=== PATIENT | male | born 1940 | race Caucasian/White ===

== ENCOUNTER 2017-02-04 16:35 | Emergency (ER) | payer MEDICARE, OTHER ==
[~2017-02-04] VITALS: Ht 167.6 cm; Wt 94.3 kg
[~2017-02-04 16:35] MED LIST: ACET650S26 GT; APIX5TAB PO; ATOR40TA PO; DEXT1CAP3 GT; DILT90CA GT; DOCU50LI GT; FURO20TA4 PO; HYDR-3652 GT; INSU100V3 SQ; INSU100V7 SQ; LOSA25TA3 PO; METF500T4 GT; METO5SOL2 GT; OMEP40CA37 GT; ONDA4TAB5 PO; ZOLP10TA6 PO
--- NOTE | 2017-02-04 16:38 | NUR ---
Bib due to intermitent abdominal pain x 2 weeks, worst today. Patient is aao4, appears in no acute distress, respiration even and unlabored. Patient denies chest pain. Skin is warm to touch and non diaphoretic. Afebrile. vss
--- NOTE | 2017-02-04 16:58 | NUR ---
MD Marte at bedside
[2017-02-04] MEDS ORDERED: ONDANSETRON HCL/PF 4 MG/2 ML VIAL ONE (17:06)
--- NOTE | 2017-02-04 17:14 | NUR ---
pt is also complaining of right leg swelling. Md Marte aware
--- NOTE | 2017-02-04 17:15 | NUR ---
Medicated patient as ordered
--- NOTE | 2017-02-04 17:15 | NUR ---
Iv accessed to lac 20. blood sample sent
[2017-02-04 17:16] LABS: BASOPHILS % (AUTO) 0.6 % (0.0-2.0); EOSINOPHILS # (AUTO) 0.4 /CMM (0.0-0.7); EOSINOPHILS % (AUTO) 6.2 % (0.0-6.0); HEMATOCRIT 36 % (39-51); LYMPHOCYTES # (AUTO) 1.3 /CMM (0.8-4.8); LYMPHOCYTES % (AUTO) 19.8 % (20.0-44.0); MEAN CORPUSCULAR HEMOGLOBIN 31 PG (26.0-33.0); MEAN CORPUSCULAR HGB CONC 33 g/dl (31.0-36.0); MEAN CORPUSCULAR VOLUME 94 fL (80-96); MONOCYTES # (AUTO) 0.5 /CMM (0.1-1.30); MONOCYTES % (AUTO) 7.8 % (2.0-12.0); NEUTROPHILS # (AUTO) 4.2 /CMM (1.8-8.9); NEUTROPHILS % (AUTO) 65.6 % (43.0-81.0); PLATELET COUNT (AUTO) 280 /CMM (150-450); RDW COEFFICIENT OF VARIATION 15.9 (11.5-15.0); RED BLOOD CELL COUNT(AUTO) 3.85 MIL/uL (4.5-6.0); WHITE BLOOD COUNT (AUTO) 6.4 K/uL (4.3-11.0)
[2017-02-04 17:26] LABS: CALCIUM, SERUM 9.1 mg/dL (8.5-10.1); CARBON DIOXIDE 32 mmol/L (21-32); CHLORIDE 103 mmol/L (98-107); CREATININE 2.5 mg/dL (0.6-1.3); GLUCOSE 125 mg/dL (74-106); POTASSIUM 4.2 mmol/L (3.5-5.1); SODIUM SERUM 140 mmol/L (136-145); UREA NITROGEN, BLOOD 37 mg/dL (7-18)
[2017-02-04 17:30] LABS: INR 1.09 (0.87-1.13); PROTHROMBIN TIME 11.3 SECS (9.5-12.7)
[2017-02-04] MEDS ORDERED: ONDANSETRON HCL/PF 4 MG/2 ML VIAL IVP ONE (17:30)
--- NOTE | 2017-02-04 17:30 | NUR ---
patient taken to ct
[2017-02-04 17:34] LABS: TROPONIN I < 0.017 ng/mL (0.00-0.056)
[2017-02-04 17:39] LABS: ALANINE AMINOTRANSFERASE 16 U/L (12-78); ALBUMIN 3.8 g/dL (3.4-5.0); ALKALINE PHOSPHATASE 74 U/L (46-116); ASPARTATE AMINOTRANSFERASE 14 U/L (15-37); B-TYPE NATRIURETIC PEPTIDE 3423 PG/ML (0-125); BILIRUBIN,DIRECT 0.2 mg/dL (0.0-0.2); BILIRUBIN,TOTAL 0.4 mg/dL (0.2-1.0); TOTAL PROTEIN, SERUM 8.2 g/dL (6.4-8.2)
--- NOTE | 2017-02-04 17:58 | NUR ---
CALLED [facility] FOR TELE BED
--- NOTE | 2017-02-04 18:00 | NUR ---
PAGED COMMUTATOR UNDERCUTTER FOR [facility] DR FOOTE
--- NOTE | 2017-02-04 18:00 | NUR ---
patient is back from ct
--- NOTE | 2017-02-04 18:02 | NUR ---
ER DOCTOR ON THE PHONE WITH DR FOOTE
[2017-02-04] MEDS ORDERED: SITA50TA PO (18:10)
[2017-02-04] MEDS ORDERED: CHOL200026 PO (18:10)
[2017-02-04] MEDS ORDERED: LORA10TA7 PO (18:10)
[2017-02-04] MEDS ORDERED: SERT50TA PO (18:10)
--- NOTE | 2017-02-04 18:30 | NUR ---
Report given to Nurse Najera for tele admission
--- NOTE | 2017-02-04 18:46 | NUR ---
pt transported to [address] [place] [id number]
--- NOTE | 2017-02-04 19:08 | NUR ---
INFORMED NURSING SUP. PT WILL BE TRANSPORTED TO [facility]
--- NOTE | 2017-02-04 19:11 | NUR ---
REPORT GIVEN TO NURSE MARTIN FOR [facility]ILIA
--- NOTE | 2017-02-04 19:12 | NUR ---
REPORT REC'D FROM KATARZYNA SO FOR ANALILIA.
--- NOTE | 2017-02-04 19:14 | NUR ---
CALLED [facility], SPOKE WITH TIMOTHY, ASKED FOR TELE BED AND 'S NUMBER (UROLOGIST), , WILL CALL HIM
--- NOTE | 2017-02-04 19:17 | NUR ---
PAGED DR. MENDY PA (UROLOGIST)
--- NOTE | 2017-02-04 19:20 | NUR ---
PT IS NPO, PER DR. DAVIDSON
--- NOTE | 2017-02-04 19:22 | NUR ---
PAGED CERAMIC TILE INSTALLATION HELPER FOR [facility] AT [facility] DR BRE PEREZ
--- NOTE | 2017-02-04 19:32 | NUR ---
CALLED [facility] FOR TRANSPORT TO [facility], ETA 90 MIN
--- NOTE | 2017-02-04 19:42 | NUR ---
[facility]
--- NOTE | 2017-02-04 19:42 | NUR ---
PT GOING TO [place] TELE BED ROOM 220
--- NOTE | 2017-02-04 19:47 | NUR ---
CALLING REPORT TO TELE NURSE AT [facility].
--- NOTE | 2017-02-04 19:54 | NUR ---
REPORT GIV[facility] TO [facility]. PT IS GOING TO ROOM #220
--- NOTE | 2017-02-04 20:22 | NUR ---
ON PHONE WITH
--- NOTE | 2017-02-04 20:28 | NUR ---
CALLED [facility] TO [facility]GRADE AM[facility]ULANCE TO [facility]
--- NOTE | 2017-02-04 20:31 | NUR ---
[facility] ETA FOR UPGRADING TO ALS IS 2 HOURS
[2017-02-04 22:30] VITALS: BP 141/82
--- NOTE | 2017-02-04 22:45 | NUR ---
[facility] ARRIVED. REPORT GIVEN TO EMT. COPY OF ALL LABS AND RADIOLOGY GIVEN
== END 2017-02-04 18:47 | disposition other institution (70) ==
LOC: ER 16:37 → UNDOADMIN 18:14 → TELE 18:14
DX: I50.9 Heart failure, unspecified (principal); I48.91 Unspecified atrial fibrillation; R53.1 Weakness; E11.9 Type 2 diabetes mellitus without complications; I13.0 Hypertensive heart and chronic kidney disease with heart failure and stage 1 through stage 4 chronic kidney disease, or unspecified chronic kidney disease; N18.9 Chronic kidney disease, unspecified; Z86.73 Personal history of transient ischemic attack (TIA), and cerebral infarction without residual deficits; Z88.6 Allergy status to analgesic agent; Z79.4 Long term (current) use of insulin
CPT/HCPCS: 36415; 71010; 74176; 80048; 80076; 83880; 84484; 85025; 85730; 93005; 96374; 99285; A4606; J2405; Z7610

== ENCOUNTER 2017-05-22 09:05 | Outpatient (CLI) | payer MEDICARE, OTHER ==
[~2017-05-22 09:05] MED LIST changes: -ACET650S26 GT; +CHOL200026 PO; -DEXT1CAP3 GT; -DILT90CA GT; -DOCU50LI GT; -HYDR-3652 GT; -INSU100V3 SQ; -INSU100V7 SQ; +LORA10TA7 PO; -METF500T4 GT; -METO5SOL2 GT; -OMEP40CA37 GT; -ONDA4TAB5 PO; +SERT50TA PO; +SITA50TA PO; -ZOLP10TA6 PO
[2017-05-22] MEDS ORDERED: REGADENOSON 0.4 MG/5 ML DISP.SYRIN IVP ONE (10:00)
== END 2017-05-22 23:59 | disposition home or self-care (01) ==
LOC: RAD 09:05
PROVIDERS: ATTEND Internal Medicine Cardiovascular Disease
DX: R07.9 Chest pain, unspecified (principal)
CPT/HCPCS: 78452; A9502; J2785